=== PATIENT | female | born 1995 | race African-American/Black ===

== ENCOUNTER 2020-05-10 10:38 | Outpatient (CLI) | payer BC, SELFPAY ==
--- NOTE | ~2020-05-10 | US_ITS ---
EXAMINATION: US OB follow up DATE: 05/10/2020 11:25 INDICATION: dating, unsure of last menstrual period TECHNIQUE: Real-time ultrasound of the pelvis was performed. The interpreting radiologist was not pre sent for the study. COMPARISON: None. FINDINGS: There is a single living fetus in variable presentation. The placenta is fundal. card iac activity and movement are noted. heart rate is 150 beats per minute (bpm). The amniot ic fluid index is subjectively normal. The following biometric data were obtained: Biparietal diameter (BPD): 3.3 cm; head circumference (HC): 12. cm; abdominal circumference (AC): 510 .5 cm; femur length (FL): 2.1 cm. These measurements are concordant. Estimated weight is 156 g +/- 23 g. As single measurements, these parameters are each equal to the following estimated gestational ages w ith ranges of +/- 2 standard deviations: BPD: 16 weeks 2 days +/- 1 weeks 1 days. HC: 16 weeks 2 days +/- 1 weeks 1 days. AC: 16 weeks 3 days +/- 1 weeks 5 days. FL: 16 weeks 3 days +/- 1 weeks 3 days. estimated gestational age based solely on measurements from this exam is 16 weeks 3 days +/- 1 weeks 1 days. IMPRESSION: 1. Single living fetus in variable presentation. 2. estimated gestational age based solely on measurements from this exam is 16 weeks 3 days +/- 1 weeks 1 days with an estimated delivery date of 10/22/2020. Reviewed, dictated and finalized at location A. HEALTH CARE PHYSICIAN IMPRESSION: 1. Single living fetus in variable presentation. 2. estimated gestational age based solely on measurements from this exam is 16 weeks 3 days +/- 1 weeks 1 days with an estimated delivery date of 021.
== END 2020-05-10 10:39 | disposition home or self-care (01) ==
PROVIDERS: Visit Provider Obstetrics & Gynecology
DX: Z34.92 Encounter for supervision of normal pregnancy, unspecified, second trimester (principal); Z3A.16 16 weeks gestation of pregnancy
CPT/HCPCS: 76816

== ENCOUNTER 2020-08-01 09:32 | Outpatient (CLI) | payer BC, SELFPAY ==
--- NOTE | ~2020-08-01 | US_ITS ---
EXAMINATION: US OB follow up DATE: 08/01/2020 10:13 INDICATION: Routine care at the transition from the 2nd-3rd trimester of TECHNIQUE: Real-time ultrasound of the pelvis was performed. The interpreting radiologist was not pre sent for the study. COMPARISON: 05/10/2020 FINDINGS: There is a single living fetus in transverse lie with vertex positioned more caudally and to th e maternal right. The placenta is fundal. heart rate is 123 beats per minute (bpm). The amniot ic fluid index is 16.6 cm, which is normal (5th%-95%: 9.4-22.8 cm at 28 weeks estimated gestational age). The following biometric data were obtained: BPD: 7.3 cm -> 29 weeks 2 days Head circumference: 25.5 cm -> 27 weeks 5 days Abdominal circumference: 55.8 cm -> 27 weeks 1 days Femur length: 5.5 cm -> 28 weeks 6 days These measurements are concordant. Head circumference to abdominal circumference ratio: 1.12 (normal range 1.01-1.21). Estimated weight: 1152 g (+/-) 173 g. or 2 lbs. 9 oz. (+/-) 6 oz. IMPRESSION: 1. Single living fetus in transverse lie with heart rate of 123 bpm. 2. Normal amniotic fluid index of 16.6 cm. 3. Estimated weight is 25th percentile by Hadlock criteria when 10/22/2020 is used as the estima joseluis date of delivery (RENAE). Please correlate with clinical information or earlier ultrasounds for mos t accurate RENAE. Reviewed, dictated and finalized at location B. IMPRESSION: 1. Single living fetus in transverse lie with heart rate of 123 bpm. 2. Normal amniotic fluid index of 16.6 cm. 3. Estimated weight is 25th percentile by Hadlock criteria when 10/22/2020 is used as the estimated date of delivery (RENAE). Please correlate with clinica l information or earlier ultrasounds for most accurate RENAE.
== END 2020-08-01 09:33 | disposition home or self-care (01) ==
PROVIDERS: Visit Provider Obstetrics & Gynecology
DX: Z34.82 Encounter for supervision of other normal pregnancy, second trimester (principal); Z3A.00 Weeks of gestation of pregnancy not specified
CPT/HCPCS: 76816

== ENCOUNTER 2020-10-11 15:41 | Outpatient (CLI) | payer BC, SELFPAY ==
--- NOTE | ~2020-10-11 | US_ITS ---
US OB follow up DATE: 10/11/2020 16:16 INDICATION: Routine care TECHNIQUE: Real-time imaging and Doppler analysis COMPARISON: 08/01/2020, 05/10/2020 obstetrical ultrasound examinations FINDINGS: Live guan intrauterine gestation, fetus in transverse lie, vertex presentation. heart rate 159 bpm. Fundal placenta. Amniotic fluid index measures 18.1 cm, normal. The percentile MENDOZA is 7.3 cm. 95th percentile is 23.9 cm. Biparietal diameter 9.43 cm; 38 weeks 3 days estimated gestational age Head circumference 33.10 cm; 37 weeks 5 days Abdominal circumference 33.81 cm; 37 weeks 5 days Femur length 6.96 cm; 35 weeks 5 days Composite age by Hadlock formula based upon these measurements would be 37 weeks 3 days +/- 2 weeks 4 days with RENAE of 10/29/2020 compared to 10/23/20112020 by LMP. Estimated weight is 3179 +/- 477 g. Estimated weight-GP: 36.7% Femur length/abdominal circumference 20.59, within normal range of 20.00-24.00 Femur length/head circumference 21.03, within normal range of 20.84-22.64 Femur length/BPD: 73.79, within normal range of 71.0-87.0 Head circumference/abdominal circumference 0.98, within normal range of 0.91-1.05. IMPRESSION: Amniotic fluid index measures 18.1 cm, normal Estimated weight is 3179 +/- 477 g Reviewed, dictated and finalized at Location A. Reviewed, dictated and finalized at location A.
== END 2020-10-11 15:42 | disposition home or self-care (01) ==
PROVIDERS: Visit Provider Obstetrics & Gynecology
DX: Z34.93 Encounter for supervision of normal pregnancy, unspecified, third trimester (principal); Z3A.38 38 weeks gestation of pregnancy
CPT/HCPCS: 76816

== ENCOUNTER 2020-10-20 09:52 | Inpatient (IN) | payer BC, SELFPAY ==
[2020-10-20] VITALS (55 sets, daily range): BP systolic 97–132; BP diastolic 44–79; PULSE 61–101; RESP 16; TEMP 36.2–37.4; O2SAT 93–100; BMI 40.7
--- NOTE | 2020-10-20 10:00 | PM.IMHP ---
H&P: HPI History of Present Illness Date/Time: 10/20/20 10:00 25yo AAF at [id number] with MALPRESENTATION -- TRANSVERSE LIE AND DESIRES STERILIZATION presents for PRIMARY C SECTION WITH BILATERAL TUBAL STERILIZATION-BILATERAL SALPINGECTOMY. [facility] tubal consent forms have been signed she understands that sterilization is permanent irreversible and does not desire future fertility she understands the failure rate of 3 to 07/999 with increased risk of ectopic and its sequelae and she agrees to proceed. She understands surgical risks including but not limited to bleeding infection injury to bladder bowel baby pelvic vessels DVT pneumonia wound infection UTI shoulder dystocia risk of hemorrhage and the risk of anesthesia. complicated by h/o STD-NG TV HSV sc trait, history PIH, GBS carrier, UTI abn 1hr gct normal 3h gtt and varicella non immune. she has had 10 visits, N I PT is negative for genetics with normal male, ultrasound negative anomaly screen, AFP negative, GBS positive, 3 hour glucose tolerance test normal, ultrasound shows transverse lie arms legs down Combo Breast and bottle feed, circumcision is desired for baby boy named Wilton briones . Chief Complaint: TERM MALPRESENTATION TRANSVERSE LIE ELECTIVE PRIMARY DESIRES BILATERAL TUBAL STERILIZATION FOR BILATERAL SALPINGECTOMY Review of Systems Review of Systems: All systems reviewed & are unremarkable except as noted in HPI and below Constitutional: Constitutional: Reports no additional constitutional complaints Eyes: Eyes: Reports no additional eye complaints ENT: Reports system reviewed and no additional complaints, except as documented Cardiovascular: Cardiovascular: Reports no additional cardiovascular complaints Respiratory: Respiratory: Reports no additional respiratory complaints Gastrointestinal: Gastrointestinal: Reports no additional gastrointestinal complaints Genitourinary: Genitourinary: Reports no additional female genitourinary complaints Musculoskeletal: Musculoskeletal: Reports no additional musculoskeletal complaints Integumentary/Breasts: Skin/Breast: Reports system reviewed and no additional complaints, except as docu Neurologic: Reports system reviewed and no additional complaints, except as documented Psychiatric: Psychiatric: Reports no additional psychiatric complaints Endocrine: Endocrine: Reports no additional endocrine complaints Hematologic/Lymphatic: Hematologic/Lymphatic: Reports no additional hematologic/lymphatic complaints Allergic/Immunologic: Allergic/Immunologic: Reports no additional allergic/immunologic complaints [facility] Past Medical History Medical History (Updated 10/20/20 @ 10:21 by Alessandro Graves MD) Bacterial vaginosis Candidiasis of vagina malpresentation GBS carrier Genital herpes simplex History of gonorrhea History of trichomonal vaginitis Maternal varicella, non-immune Sickle cell trait Term Urinary tract infection affecting KLEBSIELLA Vaginal delivery 05/14/20141416 lbs.4 oz.FStandard V[facility]inal [facility] 12/23/2015140.27 lbs.8 oz.MStandard Vaginal DeliveryFull Term BirthNone Vaginal delivery 01/29/2017140.18 lbs.8 oz.FStandard Vaginal DeliveryFull Term BirthNone Vaginal delivery 04/27/2019139.312 hrs.7 lbs.FVaginalFull [facility] Family History Family History Mother Hypertension Sibling Diabetes mellitus Asthma Grandparent Colon cancer Social History Social History (Updated 10/20/20 @ 10:21 by Alessandro Graves MD) Smoking status: Never smoker Second hand tobacco smoke exposure: No Alcohol intake: never Substance use: never Living arrangements: with family Occupation/Education: unemployed Gender identity (if verbaliz
--- NOTE | 2020-10-20 10:13 | WPDHPUPDATE1 ---
History and Physical Update Update Date/Time: 10/20/20 10:13 History and Physical has been reviewed, including an updated exam of the patient. There are NO changes in the patient's condition. Risks, benefits, and alternatives have been discussed and questions answered. Patient agrees to proceed with procedure. 25yo AAF at [id number] with MALPRESENTATION -- TRANSVERSE LIE AND DESIRES STERILIZATION presents for PRIMARY C SECTION WITH BILATERAL TUBAL STERILIZATION-BILATERAL SALPINGECTOMY. [facility] tubal consent forms have been signed she understands that sterilization is permanent irreversible and does not desire future fertility she understands the failure rate of 3 to 07/999 with increased risk of ectopic and its sequelae and she agrees to proceed. She understands surgical risks including but not limited to bleeding infection injury to bladder bowel baby pelvic vessels DVT pneumonia wound infection UTI shoulder dystocia risk of hemorrhage and the risk of anesthesia. complicated by h/o STD-NG TV HSV sc trait, history PIH, GBS carrier, UTI abn 1hr gct normal 3h gtt and varicella non immune. she has had 10 visits, N I PT is negative for genetics with normal male, ultrasound negative anomaly screen, AFP negative, GBS positive, 3 hour glucose tolerance test normal, ultrasound shows transverse lie arms legs down Combo Breast and bottle feed, circumcision is desired for baby boy named Wilton briones .
[2020-10-20] MEDS: LACTATED RINGERS 1,000 ML 125 ML IV CONT (10:42)
--- NOTE | 2020-10-20 10:44 | PM.OBPNLAB ---
Pain Control Date/time seen: 10/20/20 10:44 Pain control: tolerating well Pelvic Exam Dilation (cm): 0 Effacement (%): 0 station: -4 Amniotic membrane status: Intact Comments: ULTRASOUND CONFIRMED TRANSVERSE LIE SMALL PARTS DOWN Contractions Monitor mode: External Contraction pattern: Regular Contraction phase: Contraction Contraction intensity: Moderate Status status: Category l Assessment and Plan Assessment: other ( CONFIRMED MALPRESENTATION TRANSVERSE LIE WILL UNDERGO ELECTIVE AND BILATERAL TUBAL STERILIZATION) Plan: continuous present management Comments: PRIMARY LOW-TRANSVERSE SECTION FOR MALPRESENTATION TRANSVERSE LIE AND BILATERAL TUBAL STERILIZATION WITH BILATERAL SALPINGECTOMY UNDER SPINAL ANESTHESIA INFORMED CONSENT OBTAINED IDPH CONSENT FORMS IN CHART
--- NOTE | 2020-10-20 10:57 | WPDANESEPPF ---
Anes - Initial Pre Proc Eval Procedure: Operation Date: 10/20/20 12:00 Proposed Procedures p Primary Section, Bilateral Salpingectomy - Alessandro Graves MD Date/Time: 10/20/20 10:57 Surgeon: Alessandro Graves MD Pre Op Diagnosis: C Section Patient Data Age: 25 Gender: F Height: 1.6 m Weight: 104.3 kg Last Vital Signs Pulse 101 H 10/20/20 10:15 BP 125/79 10/20/20 10:15 Allergies Allergy/AdvReac Type Severity Reaction Status Date / Time No Known Allergies Allergy Verified 09/26/20 14:30 Home Medications Medication Instructions Recorded Confirmed Type aspirin [Aspirin Low Dose] 81 mg PO DAILY 09/26/20 09/26/20 History prenat.vits,juani,yjk-ooom-rbpaf 1 tablet PO DAILY 09/26/20 09/26/20 History [ #2] Laboratory Tests 10/20/20 10/20/20 10:50 10:50 WBC Pending RBC Pending Hgb Pending Hct Pending MCV Pending MCH Pending MCHC Pending RDW Pending Plt Count Pending MPV Pending Immature Gran % (Auto) Pending Neut % (Auto) Pending Lymph % (Auto) Pending [place] % (Auto) Pending Eos % (Auto) Pending Baso % (Auto) Pending Lymph # (Auto) Pending [place] # (Auto) Pending Eos # (Auto) Pending Baso # (Auto) Pending Abs Immat Gran (auto) Pending Absolute Neuts (auto) Pending Absolute Nucleated RBC Pending Nucleated RBC % Pending RPR Pending Patient hx anesthesia problems: none Family hx anesthesia problems: none PMFSH Past Medical History Medical History Bacterial vaginosis Candidiasis of vagina malpresentation GBS carrier Genital herpes simplex History of gonorrhea History of trichomonal vaginitis Maternal varicella, non-immune Sickle cell trait Term Urinary tract infection affecting KLEBSIELLA Vaginal delivery 05/14/20141416 lbs.4 oz.FStandard Vaginal DeliveryFull Term [facility] Vaginal delivery 12/23/2015140.27 lbs.8 oz.MStandard Vaginal DeliveryFull Term BirthNone Vaginal delivery 01/29/2017140.18 lbs.8 oz.FStandard Vaginal DeliveryFull Term BirthNone Vaginal delivery 04/27/2019139.312 hrs.7 lbs.FVaginalFull [facility] Surgical History Surgical History (Updated 10/20/20 @ 10:57 by Regis Kovacs MD) Hx of breast reduction, elective Family History Family History Mother Hypertension Sibling Diabetes mellitus Asthma Grandparent Colon cancer Social History Social History Smoking status: Never smoker Second hand tobacco smoke exposure: No Alcohol intake: never Substance use: never Living arrangements: with family Occupation/Education: unemployed Gender identity (if verbalized by the patient): Female Sexual Orientation (if Verbalized by the Patient): Straight or Heterosexual Spiritual care concerns: No Agree to blood products: Yes Anes - Eval Final PreProcedure Day of Procedure 10/20/20 10:57 Patient weight: morbidly obese Heart: regular rate and rhythm Lungs: clear to auscultation Airway: Mallampati scale class II Neurological: alert and oriented Last oral intake: >/= 8 hours ASA classification: II Emergent: no Anesthetic plan: proceed Anesthesia type and monitoring: regional and standard monitoring Informed Consent: The patient's anesthetic plan and its attendant risks and benefits were discussed with the patient/family/POA. Questions were solicited and answers provided to the satisfaction of the patient/family/POA.
[2020-10-20 11:21] LABS: Basophils Absolute Auto 0.1 K/mm3 (0.0-0.1); Basophils Percent Auto 0.5 % (0.2-1.2); Eosinophils Absolute Auto 0.1 K/mm3 (0-0.3); Hematocrit 33.2 % (37.0-47.0); Hemoglobin 10.9 g/dL (12.0-15.0); Immature Granulocyte Absolute 0.19 K/mm3 (0.00-0.031); Immature Granulocyte Percent A 1.7 % (0-0.5); Lymphocytes Absolute Auto 2.46 K/mm3 (0.9-3.2); Lymphocytes Percent Auto 22.2 % (18.3-44.2); Mean Corpuscular HGB Conc 32.8 g/dl (32-36); Mean Corpuscular Hemoglobin 24.7 pg (26-34); Mean Corpuscular Volume 75.3 fl (80-100); Mean Platelet Volume 11.8 fl (7.4-10.4); Monocytes Absolute Auto 0.8 K/mm3 (0.1-0.6); Monocytes Percent Auto 7.3 % (2.6-8.5); Neutrophils Absolute Auto 7.5 K/mm3 (1.3-6.7); Neutrophils Percent Auto 67.3 % (45.5-73.1); Platelet Count Result 185 k/mm3 (150-375); Red Blood Count 4.41 M/mm3 (4.2-5.4); Red Cell Distribution Width 16.4 % (11.5-14.5); White Blood Count 11.1 K/mm3 (4.5-10.0)
--- NOTE | 2020-10-20 12:28 | PM.OBPRVD ---
OB - Delivery Note Procedure Procedure: Procedures Operation Date: 10/20/20 12:00 Actual Procedure Side Surgeon p Section Alessandro Graves MD Intrapartal events: Abnormal Presentation ( transverse lie) Induction method: none Delivery monitor: external FHT and external uterine Route of delivery: ( primary low-transverse) Episiotomy description: None Laceration Description: None Specimen: Yes Quantitative Blood Loss (ml): 410 Anesthesia type: Spinal Disposition: floor Complications: none Narrative: see detailed operative report Baby Date of : 10/20/20 Time of : 11:43 Weeks of gestation at delivery: 40 Infant gender: Male Weight (pounds): 8 Weight (ounces): 4 presentation: transverse position: Transverse Placenta delivery description: Expressed and Normal Configuration cord vessel description: 3 Vessels and Around Body x2 score one minute: 8 score five minutes: 9 Narrative: see detailed operative report
--- NOTE | 2020-10-20 12:32 | W.PM.PROC2 ---
Procedure Note - Detailed Date of Procedure 10/20/20 Pre-op Diagnosis term malpresentation -transverse lie Elective section desires bilateral tubal sterilization History of STDs GBS carrier Sickle cell trait Varicella nonimmune Post-op Diagnosis same ( term , delivered viable male and placenta malpresentation -transverse lie Elective section desires bilateral tubal sterilization History of STDs GBS carrier Sickle cell trait Varicella nonimmune) Procedure Performed primary low-transverse section with delivery of viable male and placenta Bilateral tubal sterilization with bilateral salpingectomy Surgeon Alessandro Graves MD Manager Nuclear child life assistant x2 Anesthesia spinal ( Duramorph) Indications malpresentation transverse lie Desires bilateral tubal sterilization Findings viable male infant delivered at 11:43 a.m. on 10/20/2020 scores 8 9 weight 3730 g 8 lb 4 oz normal exam normal transition taken to the nursery in stable condition Placenta intact three-vessel cord cord around the arm and cord around the leg x1 sent to pathology light meconium in amniotic fluid Normal uterus tubes and ovaries Hemostasis excellent after tubal sterilization of all pedicles Normal upper abdomen VTE prevention SCDs Antibiotic prophylaxis Ancef 2 g Procedure performed OR room 2. Taken to recovery room stable condition Uterus firm with Pitocin given intravenously and 10 units into the myometrium Counts correct Complications none specimens to pathology included the placenta Cord gases cord blood and the right and left fallopian tube Description of Procedure informed consent obtained patient taken the operating room where she was given a spinal anesthetic in the sitting position and then placed in the supine position. Samuel catheter was inserted in the abdomen was prepped and then draped with a TRAXI device. Abdomen was tested for adequate anesthesia and a time-out was performed. A Pfannenstiel incision was made to the skin and the abdomen was opened in layers cautery used for hemostasis Kevin's fascia was incised and the abdominal wall fascia was incised with cautery and extended bilaterally undermined inferiorly and superiorly. the rectus Muscles were then the midline. Peritoneum was entered with electrocautery. I then did a rotation of the baby from transverse position to a vertex and then performed a transverse incision over the lower uterine segment I entered the uterus bluntly and light meconium-stained amniotic fluid was identified the uterine is incision was extended bilaterally the vertex was then delivered via the abdominal incision with fundal pressure and the nose and throat were bulb suction with the infant delivered and placed onto the maternal abdomen spontaneous respirations and cry stimulation and cord clamping and cutting the was handed to the nursery nurse in attendance. scores given 8 9 weight 8 lb 4 oz skin to skin contact given and the baby was then taken to the nursery in stable condition. Cord gases were obtained cord blood obtained and the placenta was then delivered intact with three-vessel cord and the uterus contracted well with Pitocin given intravenously and 10 units into the myometrium. Blood clots membranes removed from the intrauterine cavity. The uterine incision was then repaired in 2 layers with 0 Vicryl in a running interlocking fashion the 2nd being an imbricating stitch. tubal sterilization was then performed in the bilateral sequential fashion the fallopian tubes were grasped with Boissevain clamps and traced out to the fimbriated aspect the mesial salpinx was then dipped coagulated to identify the arcuate vessel of the for fimbria ovarian vessels and the proximal tube proximal tube was clamped arcuate vessel was clamped as well as the fimbriae ovarian vessels clamped bilaterally the fallopian tub
[2020-10-20] MEDS: OXYTOCIN 30 UNITS/NS 500 ML 30 UNITS/500 ML BAG 125 UNITS IV CONT (14:37)
--- NOTE | 2020-10-20 14:51 | PC.NURSE ---
Patient transferred to post room #280 per stretcher from labor and delivery. Oriented to unit, room, information board, rooming in, admission packet and security measures. Patient verbalizes understanding.
[2020-10-20 15:26] LABS: Barbiturate Screen Urine Negative (Negative); Benzodiazepines Screen Urine Negative (Negative)
[2020-10-20 16:05] LABS: Amphetamine Screen Urine Negative (Negative); Cannabinoid Screen Urine Negative (Negative); Cocaine Screen Urine Negative (Negative); Methadone Screen Urine Negative (Negative); Opiate Screen Urine Positive (Negative); Phencyclidine Screen Urine Negative (Negative)
[2020-10-20] MEDS: LORATADINE 10 MG TABLET (17:32)
[2020-10-20] MEDS: KETOROLAC 30 MG/ML VIAL (*BKC) IV PUSH (17:55)
[2020-10-20] MEDS: diphenhydrAMINE HCl INJ 50 MG/ML VIAL 25 MG IV PUSH (17:55)
[2020-10-20] MEDS: DEXTROSE 5%/0.45% SOD CHL 1,000 ML 125 ML IV CONT (19:16)
[2020-10-21] VITALS: BP 123/55; PULSE 93; RESP 16; TEMP 36.8; O2SAT 99
[2020-10-21] MEDS: diphenhydrAMINE HCl INJ 50 MG/ML VIAL 25 MG IV PUSH (00:02)
[2020-10-21] MEDS: HYDROcodone/acetaminophen (*CRX) 5-325 MG TABLET 1 TAB PO ×2 (00:03→08:13)
[2020-10-21] MEDS: IBUPROFEN 600 MG TABLET PO ×4 (00:03→20:32)
[2020-10-21 04:10] VITALS: BP 129/63; PULSE 90; RESP 16; TEMP 37.2
[2020-10-21 04:39] LABS: Basophils Absolute Auto 0.1 K/mm3 (0.0-0.1); Basophils Percent Auto 0.3 % (0.2-1.2); Eosinophils Percent Auto 0.1 % (0-4.4); Hematocrit 32.2 % (37.0-47.0); Hemoglobin 9.6 g/dL (12.0-15.0); Immature Granulocyte Absolute 0.17 K/mm3 (0.00-0.031); Lymphocytes Absolute Auto 2.15 K/mm3 (0.9-3.2); Lymphocytes Percent Auto 12.4 % (18.3-44.2); Mean Corpuscular HGB Conc 29.8 g/dl (32-36); Mean Corpuscular Hemoglobin 24.7 pg (26-34); Mean Corpuscular Volume 82.8 fl (80-100); Mean Platelet Volume 12.2 fl (7.4-10.4); Monocytes Absolute Auto 1.3 K/mm3 (0.1-0.6); Monocytes Percent Auto 7.3 % (2.6-8.5); Neutrophils Absolute Auto 13.7 K/mm3 (1.3-6.7); Neutrophils Percent Auto 78.9 % (45.5-73.1); Platelet Count Result 97 k/mm3 (150-375); Red Blood Count 3.89 M/mm3 (4.2-5.4); White Blood Count 17.3 K/mm3 (4.5-10.0)
[2020-10-21 06:54] LABS: Alanine Aminotransferase 11 U/L (4-35); Albumin Level 3.1 g/dL (3.5-5.1); Alkaline Phosphatase 189 U/L (38-126); Anion Gap 8 mmol/L (8-16); Aspartate Amino Transferase 25 U/L (14-36); Bilirubin,Total 0.3 mg/dL (0.2-1.3); Blood Urea Nitrogen 5 mg/dL (7-17); Calcium 8.5 mg/dL (8.4-10.2); Carbon Dioxide 18 mmol/L (22-30); Chloride 109 mmol/L (98-107); Estimated CRCL calculation 163 ml/min; Estimated Glomerular Filt Rate > 60; Glucose 100 mg/dL (65-105); Potassium 4.1 mmol/L (3.4-5.0); Sodium 135 mmol/L (137-145)
[2020-10-21] MEDS: MULTIVIT/MIN/PREN/FOL AC/IRON TABLET 1 TAB PO (08:13)
[2020-10-21] MEDS: POLYSACCHARIDE IRON COMPLEX 150 MG CAPSULE PO ×2 (08:13→17:53)
--- NOTE | 2020-10-21 08:25 | WPDANLDNPN2 ---
Anes-Prog Note L&D-Neuraxial Date/Time: 10/21/20 08:25 Neuraxial medications: intrathecal PF morphine Opiod-related complaints: none Patient feedback: Patient satisfied with post-operative pain management.
--- NOTE | 2020-10-21 08:25 | WPDANLDPN2 ---
Anes-Prog Note L&D Date/Time: 10/21/20 08:25 Comfortable throughout: section Neuraxial method: spinal Epidural/Spinal procedure site: clean & non-tender Neuro status: Neuro function grossly intact. Cardiovascular status: normal Respiratory status: normal Airway patency: baseline Mental status: baseline Post-Op hydration status: normal Vital Signs: Last Vital Signs Temp 37.2 C 10/21/20 04:10 Pulse 90 10/21/20 04:10 Resp 16 10/21/20 04:10 BP 129/63 10/21/20 04:10 Pulse Ox 99 10/21/20 00:00 Pain score (VAS): none I/O: Intake & Output 10/20/20 10/21/20 10/21/20 23:59 07:59 15:59 Intake Total 1220 1000 Output Total 950 1300 Balance 270 -300 Post-procedural complaints: none Patient feedback: Patient satisfied with anesthetic care.
[2020-10-21 08:30] VITALS: BP 127/64; PULSE 94; RESP 20; TEMP 36.8
--- NOTE | 2020-10-21 08:34 | PM.OBPNVD ---
OB - PN: Subj Subjective Date/time seen: 10/21/20 08:34 Patient comments: no complaints, pain well controlled, tolerating diet and flatus present baby status: doing well feeding status: exclusively bottle feeding OB - PN: Obj Data Labs CBC & Chem 7: 10/21/20 04:32 10/21/20 06:36 Labs: Laboratory Results - last 24 hr 10/20/20 10/20/20 10/20/20 10:50 11:14 14:19 WBC 11.1 H RBC 4.41 Hgb 10.9 L Hct 33.2 L MCV 75.3 L MCH 24.7 L MCHC 32.8 RDW 16.4 H Plt Count 185 MPV 11.8 H Immature Gran % (Auto) 1.7 H Neut % (Auto) 67.3 Lymph % (Auto) 22.2 [place] % (Auto) 7.3 Eos % (Auto) 1.0 Baso % (Auto) 0.5 Lymph # (Auto) 2.46 [place] # (Auto) 0.8 H Eos # (Auto) 0.1 Baso # (Auto) 0.1 Abs Immat Gran (auto) 0.19 H Absolute Neuts (auto) 7.5 H Absolute Nucleated RBC 0.0 Nucleated RBC % 0.0 Sodium Potassium Chloride Carbon Dioxide Anion Gap BUN Creatinine Estim Creat Clear Calc Estimated GFR Glucose Calcium Total Bilirubin AST ALT Alkaline Phosphatase Total Protein Albumin Urine Opiates Screen Positive A Urine Methadone Screen Negative Ur Barbiturates Screen Negative Ur Phencyclidine Scrn Negative Ur Amphetamine Screen Negative U Benzodiazepines Scrn Negative Urine Cocaine Screen Negative U Cannabinoids Screen Negative Blood Type O Positive Antibody Screen Negative 10/21/20 10/21/20 04:32 06:36 WBC 17.3 H RBC 3.89 L Hgb 9.6 L Hct 32.2 L MCV 82.8 D MCH 24.7 L MCHC 29.8 L RDW 17.0 H Plt Count 97 L MPV 12.2 H Immature Gran % (Auto) 1.0 H Neut % (Auto) 78.9 H Lymph % (Auto) 12.4 L [place] % (Auto) 7.3 Eos % (Auto) 0.1 Baso % (Auto) 0.3 Lymph # (Auto) 2.15 [place] # (Auto) 1.3 H Eos # (Auto) 0.0 Baso # (Auto) 0.1 Abs Immat Gran (auto) 0.17 H Absolute Neuts (auto) 13.7 H Absolute Nucleated RBC 0.0 Nucleated RBC % 0.0 Sodium 135 L Potassium 4.1 Chloride 109 H Carbon Dioxide 18 L Anion Gap 8 BUN 5 L Creatinine 0.50 L Estim Creat Clear Calc 163 Estimated GFR > 60 Glucose 100 Calcium 8.5 Total Bilirubin 0.3 AST 25 ALT 11 Alkaline Phosphatase 189 H Total Protein 6.0 L Albumin 3.1 L Urine Opiates Screen Urine Methadone Screen Ur Barbiturates Screen Ur Phencyclidine Scrn Ur Amphetamine Screen U Benzodiazepines Scrn Urine Cocaine Screen U Cannabinoids Screen Blood Type Antibody Screen OB - PN A/P Assessment and Plan (1) Term delivered: Code(s): O80 - Encounter for full-term uncomplicated delivery Status: Acute (2) Delivery by elective section: Code(s): O82 - Encounter for delivery without indication Status: Acute (3) Encounter for female sterilization procedure: Code(s): Z30.2 - Encounter for sterilization Status: Acute (4) malpresentation: Code(s): O32.9XX0 - Maternal care for malpresentation of fetus, unspecified, not applicable or unspecified Status: Acute (5) Thrombocytopenia due to blood loss: Code(s): D69.59 - Other secondary thrombocytopenia Status: Acute Plan day: 1 Plan: routine care, discharge home and follow up 6 weeks Time Spent With Patient Time: Total time spent is greater than 50% in coordination of care (as documented) at patient's floor/unit and/or counseling patient: Time with patient: less than 15 minutes Review of Systems Review of Systems: All systems reviewed & are unremarkable except as noted in HPI and below Exam Const: General: cooperative, healthy appearing, comfortable, no acute distress, well developed, alert, awake and Physically active Nutritional Appearance: average body habitus Orientation/consciousness: patient oriented x3 Limitations:
[2020-10-21] MEDS: diphenhydrAMINE HCl CAP 25 MG CAPSULE 50 MG PO (10:17)
[2020-10-21] MEDS: HYDROcodone/acetaminophen (*CRX) 10-325 MG TABLET 1 TAB PO ×3 (13:49→23:31)
[2020-10-21] MEDS: DOCUSATE SODIUM 100 MG CAPSULE PO (17:53)
[2020-10-21 20:35] VITALS: BP 120/60; PULSE 98; RESP 16; TEMP 37.1; O2SAT 100
[2020-10-21] MEDS: SIMETHICONE 80 MG TAB.CHEW PO (23:31)
[2020-10-22] MEDS: IBUPROFEN 600 MG TABLET PO ×2 (02:37→09:48)
--- NOTE | 2020-10-22 05:53 | PM.OBDSVD ---
DS: Admitting Diagnosis Admitting Diagnosis Admitting Diagnosis: term malpresentation -transverse lie Elective section desires bilateral tubal sterilization History of STDs GBS carrier Sickle cell trait Varicella nonimmune DS: Discharge Diagnosis Discharge Diagnosis (1) malpresentation: Code(s): O32.9XX0 - Maternal care for malpresentation of fetus, unspecified, not applicable or unspecified Status: Acute (2) GBS carrier: Code(s): Z22.330 - Carrier of Group B streptococcus Status: Acute (3) Encounter for female sterilization procedure: Code(s): Z30.2 - Encounter for sterilization Status: Acute (4) Term delivered: Code(s): O80 - Encounter for full-term uncomplicated delivery Status: Acute (5) Delivery by elective section: Code(s): O82 - Encounter for delivery without indication Status: Acute (6) Sickle cell trait: Code(s): D57.3 - Sickle-cell trait Status: Acute (7) Maternal varicella, non-immune: Code(s): O09.899 - Supervision of other high risk pregnancies, unspecified trimester; Z28.3 - Underimmunization status Status: Acute OB - DS: Summary Hospital Course Time spent discussing smoking cessation with patient: 3 to 10 minutes OB Procedures : Ultrasound OB Procedures Intrapartum: ( primary elective) low cervical, transverse and GBS prophylaxis OB Procedures: : P.P. tubal ligation Peripartum Data Infant Delivery Method: Section ( primary low-transverse) Laceration Description: None Episiotomy description: None Procedures: Procedures Operation Date: 10/20/20 12:00 Actual Procedure Side Surgeon p Section Alessandro Graves MD complications: none 1: Gender: Male Disposition of : home Status at Discharge Cognitive/behavioral status at discharge: normal Functional status at discharge: independent ambulation Overall status at discharge: patient is back to baseline Time Spent with Patient Time attestation: Total time spent providing and/or coordinating discharge services: Time spent: Less than 30 minutes Exam Const: General: cooperative, healthy appearing, comfortable, no acute distress, well developed, alert, awake and Physically active Nutritional Appearance: average body habitus Orientation/consciousness: patient oriented x3 Limitations: no limitations HENMT: Head: normal to inspection Eyes: General: appearance normal, both eyes and all related structures Neck: Neck: normal visual inspection and full ROM Chest: Chest palpation & inspection: normal inspection of the chest Resp: Effort & Inspection: normal respiratory effort Auscultation: clear to auscultation bilaterally Cardio: Palpation: normal PMI Rate: regular rate Rhythm: regular rhythm Heart sounds: S1 normal heart sound present and S2 normal heart sound present GI: Inspection: normal to inspection, incision ( dressing dry and intact) and obesity GI Palp: Yes Soft to palpation Percussion: Yes normal to percussion Auscultation: normal bowel sounds : External Female Exam: normal external appearance Bimanual exam- vagina & uterus: non-tender Back/Spine/Pelvis: Back: no CVA tenderness Skin: General skin exam: normal color Neuro: General: patient oriented x3, gait normal, tone normal, moves all extremities, Normal light touch and pain sensation, no meningeal signs and no focal motor deficits Extrem: General: normal to inspection, full ROM and pedal edema Psych: Appearance: grossly normal Mental Status: mental status grossly normal Speech and movement: Normal speech and movement present Affect: normal affect Attitude: cooperative Thought process: Normal thought process present Thought content: Yes Normal thought content present DS: Data Data Completed and Pending Labs on day of discharge: Labs fr
--- NOTE | 2020-10-22 05:54 | P.PNOB_ITS ---
OB - PN: Subj Subjective Date/time seen: 10/22/20 05:54 Patient comments: no complaints, pain well controlled, incisional pain, tolerating diet and flatus present baby status: doing well and bottle feeding well [place] feeding status: exclusively bottle feeding OB - PN: Obj Data Labs CBC & Chem 7: 10/21/20 04:32 10/21/20 06:36 Labs: Laboratory Results - last 24 hr 10/21/20 06:36 Sodium 135 L Potassium 4.1 Chloride 109 H Carbon Dioxide 18 L Anion Gap 8 BUN 5 L Creatinine 0.50 L Estim Creat Clear Calc 163 Estimated GFR > 60 Glucose 100 Calcium 8.5 Total Bilirubin 0.3 AST 25 ALT 11 Alkaline Phosphatase 189 H Total Protein 6.0 L Albumin 3.1 L OB - PN A/P Assessment and Plan (1) Term delivered: Code(s): O80 - Encounter for full-term uncomplicated delivery Status: Acute (2) Delivery by elective section: Code(s): O82 - Encounter for delivery without indication Status: Acute (3) Encounter for female sterilization procedure: Code(s): Z30.2 - Encounter for sterilization Status: Acute Plan day: 2 Plan: routine care, discharge home and follow up 6 weeks Time Spent With Patient Time: Total time spent is greater than 50% in coordination of care (as documented) at patient's floor/unit and/or counseling patient: Time with patient: less than 15 minutes Review of Systems Review of Systems: All systems reviewed & are unremarkable except as noted in HPI and below Exam Const: General: comfortable, no acute distress, alert and awake Chest: Breast/axilla inspection: normal inspection of the breasts Resp: Effort & Inspection: normal respiratory effort Cardio: Rate: regular rate : General: Yes no CVA tenderness External Female Exam: normal external appearance Psych: Appearance: grossly normal Mental Status: mental status grossly normal Affect: normal affect Attitude: cooperative Thought content: Yes Normal thought content present
[2020-10-22 09:30] VITALS: BP 137/67; PULSE 97; RESP 18; TEMP 37
[2020-10-22] MEDS: MULTIVIT/MIN/PREN/FOL AC/IRON TABLET 1 TAB PO (09:48)
[2020-10-22] MEDS: DOCUSATE SODIUM 100 MG CAPSULE PO (09:48)
[2020-10-22] MEDS: HYDROcodone/acetaminophen (*CRX) 10-325 MG TABLET 1 TAB PO (09:48)
[2020-10-22] MEDS: POLYSACCHARIDE IRON COMPLEX 150 MG CAPSULE PO (09:48)
--- NOTE | 2020-10-22 10:00 | PC.NURSE ---
Patient instructed on viewing the discharge video Mother & Baby Care, The First Two Weeks . Patient was given the opportunity and encouraged to ask questions. Patient verbalized understanding of information shared and has been given the mother/baby guide for home reference.
[2020-10-24 08:25] LABS: Rapid Plasma Reagin Non-Reactive (NonReactive)
== END 2020-10-22 12:05 | disposition home or self-care (01) | DRG 540 ==
LOC: ANHLDR 13:00 → ANHOB2 15:02
PROVIDERS: Admitting Provider Obstetrics & Gynecology; Visit Provider Obstetrics & Gynecology
PROC: 10D00Z1 Extraction of Products of Conception, Low, Open Approach (ICD-10-PCS; CPT 59514; principal; 2020-10-20 12:00)
DX: O32.2XX0 Maternal care for transverse and oblique lie, not applicable or unspecified (principal); Z37.0 Single live birth; Z3A.39 39 weeks gestation of pregnancy; O99.824 Streptococcus B carrier state complicating childbirth; O99.02 Anemia complicating childbirth; D57.3 Sickle-cell trait; D69.59 Other secondary thrombocytopenia; O99.12 Other diseases of the blood and blood-forming organs and certain disorders involving the immune mechanism complicating childbirth; O99.214 Obesity complicating childbirth; E66.01 Morbid (severe) obesity due to excess calories; Z30.2 Encounter for sterilization
CPT/HCPCS: 36415; 80053; 80307; 85025; 86592; 86850; 86900; 86901; 88302; 88307; A9270; J0131; J1200; J1885; J2274; J2590; J7120